=== PATIENT | female | born 1940 | race Caucasian/White ===

== ENCOUNTER 2019-12-23 08:12 | Day surgery (SDC) | payer OTHER, MEDICARE ==
[2019-12-19 14:39] VITALS: BMI 23.6
[2019-12-23] MEDS ORDERED: PROPOFOL 20 ML ONE ×2 (08:59)
[2019-12-23 10:06] VITALS: TEMP 97.6
[2019-12-23 10:29] VITALS: BP 129/64; PULSE 74
== END 2019-12-23 10:55 | disposition home or self-care (01) ==
LOC: FASU-ENDO 08:12
PROVIDERS: ATTEND Internal Medicine Gastroenterology
PROC: 0DJD8ZZ Inspection of Lower Intestinal Tract, Via Natural or Artificial Opening Endoscopic (ICD-10-PCS; principal; 2019-12-23 09:27)
DX: Z12.11 Encounter for screening for malignant neoplasm of colon (principal); Z80.0 Family history of malignant neoplasm of digestive organs; K57.30 Diverticulosis of large intestine without perforation or abscess without bleeding

== ENCOUNTER 2022-09-04 14:35 | Emergency (ER) | payer OTHER, MEDICARE ==
[2022-09-04] MEDS ORDERED: ACETAMINOPHEN 500 MG TABLET (FP) PO ONE (15:05)
[2022-09-04 15:06] VITALS: BMI 23.6
[2022-09-04] MEDS ORDERED: SODIUM CHLORIDE 1,000 ML IV ONE (15:12)
[2022-09-04] MEDS ORDERED: ACETAMINOPHEN 500 MG TABLET (FP) ONE (15:23)
[2022-09-04 16:04] LABS: HEMATOCRIT 36.2 % (32.4-45.2); MCH 27.7 pg (25.7-33.7); MEAN CELL VOLUME 83.8 fl (80-96); MEAN PLT VOLUME 9.5 fl (7.5-11.1); PLATELET COUNT 204.7 10^3/uL (134-434); RBC 4.32 10^6/uL (3.60-5.2); WHITE BLOOD COUNT 15.3 10^3/uL (4.0-10.8)
[2022-09-04 16:30] LABS: ALBUMIN 4.2 g/dl (3.4-5.0); BILIRUBIN,TOTAL 0.7 mg/dl (0.2-1); CALCIUM 9.4 mg/dl (8.5-10); CREATININE 0.9 mg/dl (0.55-1.3); TOT PROT 6.5 g/dl (6.4-8.2)
[2022-09-04 17:43] VITALS: TEMP 97.3
[2022-09-04 18:34] VITALS: BP 111/47; RESP 19
[2022-09-04 18:55] VITALS: PULSE 86
== END 2022-09-04 19:19 | disposition home or self-care (01) ==
LOC: FER 14:35
PROC: 3E0337Z Introduction of Electrolytic and Water Balance Substance into Peripheral Vein, Percutaneous Approach (ICD-10-PCS; principal; 2022-09-04)
DX: J06.9 Acute upper respiratory infection, unspecified (principal)
CPT/HCPCS: 0241U-QW; 36415; 71045-TC-FY; 80053; 84484; 85027; 93005; 99284-25